=== PATIENT | female | born 1995 | race Two or more races ===

== ENCOUNTER 2017-10-30 05:15 | Emergency (ER) | payer MEDICAID ==
[~2017-10-30] VITALS: Ht 162.6 cm; Wt 54.4 kg
--- NOTE | 2017-10-30 05:20 | NUR ---
TO BED 2 A 22 YO FEMALE PT BB BF FROM HOME C/O "I TOOK TOO MANY XANAX. EARLIER I DID COCAINE/ALC." DENIES SI/HI. VSS. NAD NOTED. SKIN WARM AND DRY. COMFORT MEASURES RENDERED. ONGOING CLOSE MONITORING. SAFETY MEASURES IN PLACE.
[2017-10-30 05:46] LABS: BASOPHILS % (AUTO) 0.7 % (0.0-2.0); EOSINOPHILS % (AUTO) 0.3 % (0.0-6.0); HEMATOCRIT 36 % (33-45); HEMOGLOBIN 12.6 g/dL (11.5-14.8); LYMPHOCYTES # (AUTO) 2.7 /CMM (0.8-4.8); LYMPHOCYTES % (AUTO) 41.7 % (20.0-44.0); MEAN CORPUSCULAR HEMOGLOBIN 33 PG (26.0-33.0); MEAN CORPUSCULAR HGB CONC 35 g/dl (31.0-36.0); MEAN CORPUSCULAR VOLUME 94 fL (82-100); MONOCYTES # (AUTO) 0.5 /CMM (0.1-1.30); MONOCYTES % (AUTO) 8.1 % (2.0-12.0); NEUTROPHILS # (AUTO) 3.2 /CMM (1.8-8.9); NEUTROPHILS % (AUTO) 49.2 % (43.0-81.0); PLATELET COUNT (AUTO) 350 /CMM (150-450); RDW COEFFICIENT OF VARIATION 12.4 (11.5-15.0); RED BLOOD CELL COUNT(AUTO) 3.84 MIL/uL (4.0-5.2); WHITE BLOOD COUNT (AUTO) 6.5 K/uL (4.3-11.0)
[2017-10-30 05:59] LABS: CREATININE 0.9 mg/dL (0.6-1.3)
[2017-10-30 06:05] LABS: ALBUMIN 3.8 g/dL (3.4-5.0); BILIRUBIN,DIRECT 0.2 mg/dL (0.0-0.2); BILIRUBIN,TOTAL 0.8 mg/dL (0.2-1.0); SALICYLATE 0.6 mg/dL (2.8-20.0); TOTAL PROTEIN, SERUM 7.5 g/dL (6.4-8.2)
[2017-10-30 06:24] LABS: APPEARANCE,URINE SL CLOUDY (CLEAR); BILIRUBIN,URINE NEGATIVE (NEGATIVE); BLOOD, URINE 1+ Ery/uL (NEGATIVE); COLOR,URINE YELLOW (YELLOW); KETONES,URINE NEGATIVE (NEGATIVE); LEUKOCYTE ESTERASE ,URINE NEGATIVE (NEGATIVE); NITRITE, URINE NEGATIVE (NEGATIVE); PROTEIN,URINE 1+ mg/dl (NEGATIVE); UGLUCOSE NEGATIVE (NEGATIVE); UROBILINOGEN,URINE 0.2 EU/dL (0.2)
[2017-10-30 07:02] LABS: BACTERIA,URINE Moderate /HPF (None Seen); SQUAMOUS EPITHELIAL CELL,UR Many /HPF (None Seen)
[2017-10-30 07:04] LABS: WBC,URINE 0-2 /HPF (0-3)
--- NOTE | 2017-10-30 07:16 | NUR ---
patient resting in bed. vss. nad noted. boyfriend at bedside. Endorsed care to Kaye MAYERS for melvi.
--- NOTE | 2017-10-30 08:06 | NUR ---
TAMIA KAUR RN FOR PSYCH EVAL, ETA 45 MINUTES.
--- NOTE | 2017-10-30 09:00 | NUR ---
VINCENT PENDLETON AT BS FOR EVAL.
--- NOTE | 2017-10-30 11:15 | NUR ---
Patient is resting comfortably in bed with eyes closed. Easily aroused. VSS
--- NOTE | 2017-10-30 13:06 | NUR ---
Patient discharged to home in stable condition. Written and verbal after care instructions given. Patient verbalizes understanding of instruction.
[2017-10-30 13:07] VITALS: BP 126/78
== END 2017-10-30 13:07 | disposition home or self-care (01) ==
LOC: EDBD 05:17 → ER 05:17
DX: Z03.6 Encounter for observation for suspected toxic effect from ingested substance ruled out (principal); F60.3 Borderline personality disorder; F41.9 Anxiety disorder, unspecified; G47.00 Insomnia, unspecified
CPT/HCPCS: 36415; 80048; 80076; 80305; 80329; 81001; 84702; 85025; 87086; 99284; A4606; G0480 ×2; Z7610; 81000-TC